=== PATIENT | male | born 1970 | race Caucasian/White ===

== ENCOUNTER → 2020-10-22 10:31 | Outpatient (BNVA) | payer MEDICAID, SELFPAY | PROVIDERS: Visit Provider Family Medicine | DX: R91.1 Solitary pulmonary nodule (principal) | CPT/HCPCS: 71046 ==

== ENCOUNTER 2020-12-03 09:07 | Outpatient (CLI) | payer MEDICARE, MEDICAID, SELFPAY ==
--- NOTE | 2020-12-03 09:00 | CT_ITS ---
WS: [id number] CT CHEST WITHOUT INTRAVENOUS CONTRAST HISTORY: R91.1 - Solitary pulmonary nodule TECHNIQUE: Contiguous 5 mm axial imaging performed on the thorax. Coronal and sagittal reformats are submitted. All CT scans at [facility] use at least one of these dose optimization techniq ues: automated exposure control; mA and/or kV adjustment per patient size (includes targeted exams wh ere dose is matched to clinical indication); or iterative reconstruction. CONTRAST: None DLP: 668.54 mGycm COMPARISON: 10/07/2020 and chest radiograph 10/22/2020 Lungs and central airway: Marked pulmonary expansion with severe emphysema. Paraseptal emphysematous changes at the apices. Significant improvement in the very dense opacification and reticular nodular thickening throughout a majority of the LEFT lung on 10/07/2020 has significantly improved. Mild persi stent interstitial thickening at the lingula. 4 mm subpleural nodule RIGHT lower lobe unchanged since the prior study. There is a rounded consolidation at the LEFT lung base with adjacent pleural thickening. There is low -attenuation within this nodule. This nodule measures 3.9 x 3.6 cm and extends over a length of 4.1 c m. I suspect this is probably the residual of an empyema. Compared to the chest 10/22/2020 there has b een a significant improvement. Near complete resolution of the small effusion. Heart and pericardium: Normal size heart with no pericardial effusion. Mediastinum and saira: Small mediastinal and hilar lymph nodes. There are benign calcified lymph nodes at the LEFT hilum. Vessels: Normal size aortic and pulmonary artery. No coronary artery calcifications. Chest wall and lower neck: No soft tissue masses. Upper abdomen: Visualized noncontrast liver is negative. Gallbladder is contracted. Extrarenal pelvis on the LEFT. Scattered calcifications in the suprarenal aorta. There are a few benign scattered lymp h nodes around the aorta in the retrocrural space and at the celiac axis. There is mild thickening of the stomach wall. Splenic granulomata. Osseous structures: Bilateral anterolateral lower rib fractures are identified. There is a nondisplac ed but at least partially healed. CT/CT chest wo con [id number] IMPRESSION: 1. Significant improvement in the consolidation and reticular nodular opacific ations throughout the LEFT lung compared to 10/07/2020. 2. Focal rounded consolidation with low central attenuation at the LEFT lung b ase. I favor this is probably pleural-based and may be a resolving empyema base d upon its location. Necrotic neoplasm needs to be considered also. There has b een an improvement of this consolidation as compared to the chest radiograph 05/2021. Recommend continue close follow-up as this may completely resolved. Fo llow-up chest CT with IV contrast 4-6 weeks. If there is any increase in size a spiration or biopsy may be necessary. 3. Moderate emphysema. 4. Small mediastinal and upper abdominal lymph nodes. 5. Mild diffuse stomach wall thickening. Consider gastritis. 6. Healing nondisplaced bilateral lower rib fractures.
== END 2020-12-03 09:08 | disposition home or self-care (01) ==
PROVIDERS: PCP Family Medicine; Visit Provider Internal Medicine Critical Care Medicine
DX: R91.1 Solitary pulmonary nodule (principal); S22.43XA Multiple fractures of ribs, bilateral, initial encounter for closed fracture; J43.9 Emphysema, unspecified
CPT/HCPCS: 71250